=== PATIENT | female | born 1945 | race Caucasian/White ===

== ENCOUNTER → 2023-09-26 09:32 | Outpatient (REF) | payer OTHER, SELFPAY | LOC: HWWDC 09:32 | PROVIDERS: ATTENDING PHYSICIAN Obstetrics & Gynecology Gynecology; FAMILY PHYSICIAN Internal Medicine | DX: Z12.31 Encounter for screening mammogram for malignant neoplasm of breast (principal) | CPT/HCPCS: 77063; 77067 ==

== ENCOUNTER 2024-04-16 06:04 | Emergency (ER) | payer OTHER, SELFPAY ==
[2024-04-16] VITALS (8 sets, daily range): BP systolic 162–191; BP diastolic 72–108; BMI 16.8
--- NOTE | 2024-04-16 07:01 | ED.GENMED ---
History of Present Illness
General
Chief Complaint: Dizziness
Source: patient
Exam Limitations: none
Time Seen by Provider: 04/16/24 06:53
History of Present Illness
History of Present Illness:
See MDM
Past History
Past History
ED Past Medical History: HTN; Negative Asthma, Hypercholesterolemia or NIDDM
ED Past Surgical History: Appendectomy and Gynecological (right oophorectomy, Ovarian cyst)
Social History
Tobacco: Non-smoker
Alcohol: None
Drug: None
Personal:
Living: with family
Employment: Retired
Phy Exam
Physical Exam
Physical Exam:
See MDM
Course
Orders/Labs/Results
Orders:
Orders
04/16/24 07:00
Electrocardiogram (*1) Urgent
Reason for Study: Vertigo / Dizzy
CT Head W/o Iv Contrast Urgent
Comment:
Reason For Exam: Headache, dizziness
EKG- Treatment ONCE
0.9% Sodium Chloride 1000 ml [Nss] 1,000 ml IV BOLUS
04/16/24 07:42
Complete Blood Count/With Diff Urgent
Comprehensive Metabolic Panel Urgent
04/16/24 09:19
0.9% Sodium Chloride 1000 ml [Nss] 1,000 ml IV BOLUS
04/16/24 09:32
Acetaminophen [Tylenol] 650 mg PO NOW STA
Amlodipine [Norvasc] 2.5 mg PO ONCE ONE
Atenolol [Tenormin] 50 mg PO NOW STA
Abnormal Lab Results
04/16/24
07:42
Absolute Lymphs (auto) 1.0 L 10^3/uL
(1.2-3.4)
Neutrophils % 77.6 H %
(42.2-75.2)
Lymphocytes % 13.9 L %
(20.5-51.1)
BUN 27 H mg/dl
(7-17)
Glucose 109 H mg/dl
(70-99)
04/16/24 07:42
04/16/24 07:42
Vital Signs
Initial and Last Documented VS:
Initial Vital Signs
Pulse Resp BP
73 16 162/88
04/16/24 06:12 04/16/24 06:12 04/16/24 06:12
Last Documented Vital Signs
Pulse Resp BP Pulse Ox
69 16 184/72 96
04/16/24 11:30 04/16/24 11:30 04/16/24 11:00 04/16/24 11:30
MDM/Problems Addressed
Differential Diagnosis Includes:
HPI and MDM Narrative:
78-year-old female presenting for evaluation of dizziness and lightheadedness that appears to occur when she stands up quickly. On exam, patient appears hypovolemic. She does admit that her mouth feels dry. At rest, she has no dizziness. She
does have mild headache. Given her history, will give fluids. Patient states has a history of low sodium. Will obtain basic blood work. Prior records indicate that her hyponatremia appear to be related to hydrochlorothiazide. Given her headache
and dizziness, will obtain CT head. Will reassess after fluids
Physical exam
General: Well appearing and non-toxic
HEENT: protecting airway. Pupils are equal and reactive. EOMI. Dry mucous membranes
Neck: supple
CV: No evidence of cyanosis. Regular rate and rhythm
Resp: No accessory muscle use
Abd: Non-distended
Extremities: No deformities. No leg edema
Neuro: alert. Normal finger-nose bilateral
Psych: Normal affect
Skin: Intact
Problems Addressed including Acute and Chronic Conditions affecting care:
1. Dizziness
Acuity: acute
Prognosis: stable
Details: Likely in the setting of orthostasis and hypovolemia. Will give IV fluids.
Updates
After 2 L of fluid, patient feeling much better. Will ambulate prior to discharge
Differential Diagnosis (but not limited to): Orthostasis, hyponatremia, intracranial hemorrhage
Testing considered: Troponin but she denies chest pain or shortness
Drug therapy (if applicable): OTC meds, please see d/c instruction regarding Rx drugs
Amount and/or Complexity of Data Reviewed
Clinical info obtained from: Patient
External data reviewed: N/A
Labs I independently reviewed (but not limited to): White blood cell count normal
Radiology: The CT scan was personally and independently reviewed. In addition, official CT report reviewed.
Pulse Ox: not hypoxic
EKG independently reviewed: Sinus rhythm, normal axis, no STEMI
Barrel Stave Inspector: Sinus rhythm
Critical Care: N/A
Risk of Complication:
Social Determinants of health: Good social support
Discussed with other providers: N/A
Escalation of Care includes Admit/Obs: After being observed in the Emergency Department, pt stable for discharge.
Occasional wrong word or 'sound a like' substitutions may have occurred due to the inherent limitations of voice recognition software. Read the chart carefully and recognize, using context, where substitutions have occurred.
*Critical Care Note
Total Time (30-74mins, 75-104mins- exclusive of procedures): Not Applicable
ED Attending Note
-
Portions of this chart may have been created with voice recognition software.� Occasional wrong word or��sound alike� substitutions may have occurred due to the inherent limitations of voice recognition software.
Discharge Plan
Departure
Patient Disposition: Home (Routine Discharge)
Date of Disposition: 04/16/24
Time of Disposition: 12:07
Patient with high blood pressure during this ER visit?: Yes
Discharge Problem:
Orthostatic lightheadedness
Instructions: Dehydration, Adult ED, BLOOD PRESSURE
Prescriptions:
No Action
atenolol 50 mg tablet
50 mg PO DAILY
acetaminophen 325 mg Tablet
650 mg PO Q6H PRN (Reason: mild pain/temp>100)
amlodipine 2.5 mg Tablet
2.5 mg PO DAILY
Ocuvite Adult 50 Plus 250 mg (90 mg-160 mg) Capsule
1 cap PO DAILY
cetirizine [Zyrtec] 10 mg Tablet
10 mg PO HS
calcium carbonate-vitamin D3 [Calcium 600 + D(3)] 600 mg-5 mcg (200 unit) Tablet
1 tab PO BID
dicyclomine 10 mg Capsule
10 mg PO DAILY
dicyclomine 10 mg Capsule
10 mg PO TID PRN (Reason: diarrhea )
acetaminophen 325 mg tablet
650 mg PO BID
loperamide 2 mg Tablet
4 mg PO TIDPRN PRN (Reason: diarrhea )
sodium chloride 1,000 mg tablet,soluble
1,000 mg PO DAILY
Referrals:
ARABELLA CHIU MD [Family Provider] -
Activity Restrictions/Additional Instructions:
Please return for any worsening symptoms.
You may return at any time if you have further concerns.
Please follow up with your doctor at the first available appointment, preferably this week.
Thank you for choosing [facility].
Interventions
Interventions:
*Risk Screen - Suicide Last Done: 04/16/24 06:08
*General Assessment Last Done: 04/16/24 06:08
*Neglect/Abuse Screening Last Done: 04/16/24 06:08
ED- Fall Risk Assessment Last Done: 04/16/24 08:38
*ED COVID-19 Vaccine History Last Done: 04/16/24 06:08
ED- Neurological Assessment Last Done: 04/16/24 06:12
ED- Cardiac Assessment Last Done: 04/16/24 06:12
ED Swallowing Screen Last Done: 04/16/24 06:32
Discharge Date and Time
Print Language: SPANISH
[2024-04-16] MEDS: NSS 1000 IV ×2 (07:35→09:26)
[2024-04-16 08:06] LABS: % Basophils 0.3 % (0-2); % Eosinophils 0.8 % (0-6); % Immature Granulocytes 0.3 % (0-0.5); % Lymphocytes 13.9 % (20.5-51.1); % Monocytes 7.1 % (1.7-9.3); % Neutrophils 77.6 % (42.2-75.2); Absolute Eosinophils 0.1 10^3/uL (0-0.7); Absolute Monocytes 0.5 10^3/uL (0.1-0.6); Absolute Neutrophils 5.5 10^3/uL (1.4-6.5); Hematocrit 40.9 % (37.0-47.0); Mean Corp Hgb Conc. 34.2 g/dL (33.0-37.0); Mean Corpuscular Hgb 29.6 pg (27.0-31.0); Mean Corpuscular Volume 86.5 fL (81.0-99.0); Mean Platelet Volume 9.3 fL (7.4-10.4); Nucleated Red Blood Cells % 0 %; Platelet Count 259 10^3/uL (130-400); Red Blood Cell Count 4.73 10^6/uL (4.20-5.40); Red Cell Dist. Width 13.8 % (11.5-14.5); White Blood Cell Count 7.1 10^3/uL (4.8-10.8)
[2024-04-16 08:12] LABS: ALT (SGPT) 16 U/L (0-35); AST (SGOT) 27 U/L (14-36); Albumin 4.7 g/dl (3.5-5.0); Alkaline Phosphatase 69 U/L (38-126); Blood Urea Nitrogen 27 mg/dl (7-17); Calcium 9.7 mg/dl (8.4-10.2); Carbon Dioxide 26 mmol/L (22-30); Chloride 99 mmol/L (98-107); Estimated Creatinine Clearance 44 ml/min; Glucose 109 mg/dl (70-99); Potassium 4.6 mmol/L (3.5-5.1); Sodium 136 mmol/L (135-145); Total Bilirubin 0.5 mg/dl (0.2-1.3); eGFR > 60.00
[2024-04-16] MEDS: TYLENOL 650 MG PO (09:58)
[2024-04-16] MEDS: NORVASC 2.5 MG PO (09:58)
[2024-04-16] MEDS: TENORMIN 50 MG PO (09:58)
== END 2024-04-16 14:25 | disposition home or self-care (01) ==
LOC: EMR 06:04
PROVIDERS: EMERGENCY PHYSICIAN Student in an Organized Health Care Education/Training Program; FAMILY PHYSICIAN Internal Medicine
DX: R42 Dizziness and giddiness (principal); R51.9 Headache, unspecified; I10 Essential (primary) hypertension; Z88.1 Allergy status to other antibiotic agents; Z88.8 Allergy status to other drugs, medicaments and biological substances
CPT/HCPCS: 99285; 96360; 96361; 70450; 80053; 85025; 93005

== ENCOUNTER → 2024-09-30 10:02 | Outpatient (REF) | payer OTHER, SELFPAY | LOC: HWRAD 10:02 | PROVIDERS: ATTENDING PHYSICIAN Internal Medicine Rheumatology; FAMILY PHYSICIAN Internal Medicine; OTHER PHYSICIAN Physician Assistant; REFERRING PHYSICIAN Obstetrics & Gynecology Gynecology | DX: M81.0 Age-related osteoporosis without current pathological fracture (principal); Z12.31 Encounter for screening mammogram for malignant neoplasm of breast; R60.0 Localized edema; Z87.81 Personal history of (healed) traumatic fracture | CPT/HCPCS: 77063; 77067; 77080 ==

== ENCOUNTER → 2024-10-10 09:19 | Outpatient (REF) | payer OTHER, SELFPAY | LOC: WDC 09:19 | PROVIDERS: ATTENDING PHYSICIAN Obstetrics & Gynecology Gynecology; FAMILY PHYSICIAN Internal Medicine | DX: R92.8 Other abnormal and inconclusive findings on diagnostic imaging of breast (principal) | CPT/HCPCS: 76642 ==

== ENCOUNTER 2025-02-03 20:06 | Inpatient (IN) | payer OTHER, SELFPAY ==
[2025-02-03 17:35] VITALS: BP 142/79
[2025-02-03 17:56] LABS: Hematocrit 38.2 % (37.0-47.0); Hemoglobin 13.0 g/dL (12.0-16.0); Mean Corp Hgb Conc. 34.0 g/dL (33.0-37.0); Mean Corpuscular Volume 86.6 fL (81.0-99.0); Nucleated Red Blood Cells % 0 %; Platelet Count 212 10^3/uL (130-400); Red Cell Dist. Width 13.7 % (11.5-14.5)
[2025-02-03 18:08] LABS: ALT (SGPT) 21 U/L (0-35); AST (SGOT) 23 U/L (14-36); Albumin 4.1 g/dl (3.5-5.0); Alkaline Phosphatase 61 U/L (38-126); Blood Urea Nitrogen 27 mg/dl (7-17); Calcium 8.5 mg/dl (8.4-10.2); Carbon Dioxide 21 mmol/L (22-30); Chloride 105 mmol/L (98-107); Estimated Creatinine Clearance 53 ml/min; Glucose 139 mg/dl (70-99); Potassium 4.1 mmol/L (3.5-5.1); Sodium 134 mmol/L (135-145); Total Protein 6.6 g/dl (6.3-8.2); eGFR > 60.00
[2025-02-03 18:10] LABS: COVID-19 Antigen Negative (Negative)
[2025-02-03] MEDS: VIBRAMYCIN 100 MG PO (18:50)
[2025-02-03] MEDS: ROCEPHIN 1000 MG IV (18:50)
--- NOTE | 2025-02-03 19:15 | ED.GENMED ---
History of Present Illness
General
Chief Complaint: Fever
Time Seen by Provider: 02/03/25 18:14
History of Present Illness
History of Present Illness:
Patient is a 79-year-old woman presenting to the emergency department with a cough. Patient states that last week she developed a sinus infection. A few days ago went to urgent care was started on Augmentin. Her symptoms have worsened which
include generalized weakness body aches fever and worsening cough. She did have a temperature at home. No nausea vomiting. No abdominal pain. No diarrhea. She has only had 1 dose of her Augmentin.
Past History
Past History
ED Past Medical History: HTN; Negative Asthma, Hypercholesterolemia or NIDDM
ED Past Surgical History: Appendectomy and Gynecological (right oophorectomy, Ovarian cyst)
Social History
Tobacco: Non-smoker
Alcohol: None
Drug: None
Personal:
Living: with family
Employment: Retired
Phy Exam
Physical Exam
Physical Exam:
GENERAL: in no acute distress
HEENT: normocephalic, extraocular movements intact, moist oral mucosa
NECK: normal inspection
RESPIRATORY: no respiratory distress, coarse breath sounds at bilateral bases
CARDIOVASCULAR: regular rate and rhythm
ABDOMEN/: soft, non-distended, non-tender to palpation, no rebound or guarding
EXTREMITIES: non-tender, no edema/swelling
NEUROLOGIC: awake and alert, moves all extremities
SKIN: warm
Course
Orders/Labs/Results
Orders:
Orders
02/03/25 17:32
Electrocardiogram (*1) Urgent
Reason for Study: Other
Other Reason for Exam: Possible Sepsis
IV Insert/Care/Rem.- Treatment PRN
O2 Therapy [RESP] Urgent
Titrate/Wean O2 to maintain O2 sat greater than (%): 93
Special Instructions: TO MAINTAIN CONTINUOUS O2 SATS > OR = 93%
02/03/25 17:33
EKG- Treatment ONCE
CR Chest - 2 Views Urgent
Comment:
Reason For Exam: suspected infection
02/03/25 17:43
COVID-19 Antigen Urgent
Source: Nasal Swab
Complete Blood Count/With Diff Urgent
Comprehensive Metabolic Panel Urgent
Lactic Acid Q4H
Comment: ON ICE, CANCEL 2ND ORDER IF FIRST LACTIC ACID LEVEL <2
Influenza A+B Rapid Molecular Urgent
MICHELET Source: Nasal Swab
Specimen Description:
02/03/25 17:44
Blood Culture Urgent
MICHELET Source: Blood/Venous
Specimen Description:
02/03/25 18:43
CefTRIAXone [Rocephin] 1,000 mg IV NOW STA
Doxycycline [Vibramycin] 100 mg PO NOW STA
02/03/25 18:50
Sterile Water [Sterile Water For Injection] [facility]
02/03/25 21:45
Lactic Acid Q4H
Comment: ON ICE, CANCEL 2ND ORDER IF FIRST LACTIC ACID LEVEL <2
Abnormal Lab Results
02/03/25
17:43
Absolute Neuts (auto) 7.0 H 10^3/uL
(1.4-6.5)
Absolute Lymphs (auto) 0.7 L 10^3/uL
(1.2-3.4)
Neutrophils % 83.8 H %
(42.2-75.2)
Lymphocytes % 8.1 L %
(20.5-51.1)
Sodium 134 L mmol/L
(135-145)
Carbon Dioxide 21 L mmol/L
(22-30)
BUN 27 H mg/dl
(7-17)
Glucose 139 H mg/dl
(70-99)
02/03/25 17:43
02/03/25 17:43
Vital Signs
Initial and Last Documented VS:
Initial Vital Signs
Temp Pulse Resp BP Pulse Ox
100.1 F 87 26 142/79 85
02/03/25 17:35 02/03/25 17:35 02/03/25 17:35 02/03/25 17:35 02/03/25 17:35
Last Documented Vital Signs
Temp Pulse Resp BP Pulse Ox
100.1 F 87 26 142/79 85
02/03/25 17:35 02/03/25 17:35 02/03/25 17:35 02/03/25 17:35 02/03/25 17:35
MDM/Problems Addressed
Differential Diagnosis Includes:
Patient is a 79-year-old female presenting to the emergency department with fevers cough and bodyaches for the past few days. On arrival temperature is 100.1. Patient is hypoxic to 85% requiring nasal cannula.. Exam does show coarse breath sounds
at the bases. Concern for pneumonia versus viral infection. Blood work obtained prior to my evaluation is generally unremarkable. Lactic is normal chest x-ray per my interpretation consistent with pneumonia. Will start antibiotics. Discussed
with hospitalist who accepted patient to their service
*Pulse Oximetry
SaO2: 85
Oxygen Mode of Delivery: Room air
Patient hypoxic: yes (85)
*Critical Care Note
Total Time (30-74mins, 75-104mins- exclusive of procedures): Not Applicable
ED Attending Note
-
Portions of this chart may have been created with voice recognition software.� Occasional wrong word or��sound alike� substitutions may have occurred due to the inherent limitations of voice recognition software.
Discharge Plan
Departure
Patient Disposition: Admit
Date of Disposition: 02/03/25
Time of Disposition: 19:14
Presentation/result/management discussed w/ accepting MD/DO: Hospitalist
Discharge Problem:
Pneumonia
Prescriptions:
No Action
atenolol 50 mg tablet
50 mg PO DAILY
acetaminophen 325 mg Tablet
650 mg PO Q6H PRN (Reason: mild pain/temp>100)
amlodipine 2.5 mg Tablet
2.5 mg PO DAILY
Ocuvite Adult 50 Plus 250 mg (90 mg-160 mg) Capsule
1 cap PO DAILY
cetirizine [Zyrtec] 10 mg Tablet
10 mg PO HS
calcium carbonate-vitamin D3 [Calcium 600 + D(3)] 600 mg-5 mcg (200 unit) Tablet
1 tab PO BID
dicyclomine 10 mg Capsule
10 mg PO DAILY
dicyclomine 10 mg Capsule
10 mg PO TID PRN (Reason: diarrhea )
acetaminophen 325 mg tablet
650 mg PO BID
loperamide 2 mg Tablet
4 mg PO TIDPRN PRN (Reason: diarrhea )
sodium chloride 1,000 mg tablet,soluble
1,000 mg PO DAILY
Referrals:
ARABELLA CHIU MD [Family Provider, Internal Medicine]
Interventions
Interventions:
*Risk Screen - Suicide Last Done: 02/03/25 17:35
*General Assessment Last Done: 02/03/25 17:35
*Neglect/Abuse Screening Last Done: 02/03/25 17:35
*ED- Fall Risk Assessment Last Done: 02/03/25 17:35
*ED COVID-19 Vaccine History Last Done: 02/03/25 17:35
Discharge Date and Time
Print Language: GRENADIAN
--- NOTE | 2025-02-03 19:50 | HPS.HSE ---
Addendum entered and electronically signed by Jovanni Ornelas DO 02/03/25 20:05:
A/P:
Acute Hypoxemic Respiratory Failure secondary to pneumonia
- Supplemental O2 as needed for now.
- Treat pneumonia as noted.
Original Note:
Family Physician
-
Family Physician: ARABELLA CHIU MD
Chief Complaint
-
Cough, Fatigue
History of Present Illness
Patient is an 79y F with PMH significant for hypertension, depression and prior traumatic SDH who presents to ED complaining of cough and fatigue. Patient states that she has been having symptoms for about one week of cough, fatigue, headache
and myalgias. Patient was seen at urgent Care on Sunday and prescribed antibiotics. She states that she did not take her first dose of this until this morning (which is consistent with [place] OCT). Patient had continued cough, worsening fatigue /
malaise and nausea with occasional small amounts of emesis (which she attributes to swallowing mucus).
Patient states that her was recently will with similar symptoms.
Medical History
Past Medical History
Past Medical History: Reports Other
Additional Past Medical History:
Hypertension
ASCVD / PAD
Depression
Traumatic SDH
Past Surgical History: Reports Other
Additional Past Surgical History:
TMJ Surgery
D&E
Cataracts
Uvulectomy
T&A
Appendectomy
Right Oophorectomy
L Iliac Stent
Social History
Tobacco: Non-smoker
Alcohol: None
Drug: None
Family History
Family History: Not pertinent
Allergies / Home Medications
Allergies reflects when Allergies were last updated in [facility].
Home Medications with original date entered in [facility]
Allergy/Medication List:
Allergies
Allergy/AdvReac Type Severity Reaction Status Date / Time
ampicillin Allergy Mild Rash Verified 02/03/25 17:30
furosemide (From Lasix) Allergy Unknown Unknown Verified 02/03/25 17:30
hydrochlorothiazide (From Allergy decreased Verified 02/03/25 17:30
Dyazide) sodium
triamterene (From Dyazide) Allergy decreased Verified 02/03/25 17:30
sodium
Home Medications
atenolol 50 mg tablet 50 mg PO DAILY Blood Pressure 01/05/23
acetaminophen 325 mg tablet 325 mg PO Q4HPRN PRN mild pain 01/25/23
[id number] 250 mg-dha 90 mg-epa 160 [id number] capsule (Ocuvite Adult 50 Plus) 1 cap PO DAILY supplement 03/28/23
acetaminophen 325 mg tablet 650 mg PO BID pain 04/16/24
cetirizine 10 mg tablet (Zyrtec) 10 mg PO QPM allergies 04/16/24
dicyclomine 10 mg capsule 10 mg PO DAILY Gastrointestinal Issue 04/16/24
dicyclomine 10 mg capsule 10 mg PO Q8HPRN PRN diarrhea 04/16/24
sodium chloride 1,000 mg soluble tablet 1,000 mg PO DAILY Electrolyte Repletion 04/16/24
amlodipine 5 mg tablet 5 mg PO DAILY 02/03/25
amoxicillin 875 mg tablet 875 mg PO BID 02/03/25
atorvastatin 10 mg tablet 10 mg PO DAILY 02/03/25
benzonatate 100 mg capsule 100 mg PO Q8HPRN PRN cough 02/03/25
calcium carbonate (Calcium 600) 600 mg PO BID 02/03/25
loperamide 2 mg capsule (Imodium A-D) 4 mg PO Q8HPRN PRN diarrhea 02/03/25
Review of Systems
-
History Source: Patient
A 12 point ROS was completed and negative except as noted: Yes
Constitutional: Reports Fever, Fatigue and Chills
EENT: Denies Sore Throat
Respiratory: Reports Cough and Trouble Breathing
Cardiac: Denies Chest Pain or Palpitations
Abdomen/GI: Reports Nausea and Vomiting; Denies Abdominal Pain or Diarrhea
: Denies Dysuria or Frequency
Musculoskeletal: Reports Muscle Pain; Denies Joint Pain
Neurological: Reports Headache; Denies Dizzy
Psych: Denies Depression or Anxiety
Physical Exam
Vital Signs
Vital Signs
Temp Pulse Resp BP Pulse Ox
100.1 F 87 26 142/79 85
02/03/25 17:35 02/03/25 17:35 02/03/25 17:35 02/03/25 17:35 02/03/25 19:17
Physical Exam
General: Other (79y F in mild distress due to cough / nausea.)
HEENT: Moist mucous membranes, PERRLA and Other (Neck supple.)
Respiratory: Other (Decreased BS at bases - otherwise clear. Cough with deep inspiration.)
Cardiac: S1/S2 and Regular Rhythm; No Murmur
GI: Soft, Non Tender, Non Distended and Normal Bowel Sounds
Musculoskeletal: No Clubbing, No Cyanosis and No Edema
Neuro: AO x 3
Laboratory Results
-
02/03/25 17:43
02/03/25 17:43
Laboratory Results
Lactic Acid 1.0 mmol/L (0.7-2.0) 02/03/25 17:43
Total Bilirubin 0.7 mg/dl (0.2-1.3) 02/03/25 17:43
AST 23 U/L (14-36) 02/03/25 17:43
ALT 21 U/L (0-35) 02/03/25 17:43
Alkaline Phosphatase 61 U/L (38-126) 02/03/25 17:43
Impression/Plan
-
A/P: Patient is an 79y F with PMH significant for hypertension, depression and prior SDH who presents to ED complaining of cough, fatigue and myalgias x 1 week.
LLL Pneumonia
- Admit for further evaluation and treatment.
- Symptoms x 1 week. Rx abx at Urgent Care - but has only received one dose thus far (this AM).
- Continue abx for CAP.
- Supportive care including nebs, O2, antiemetics, etc.
- Follow for clinical improvement.
Benign Hypertension
- Stable. Continue usual home regimen with holding parameters.
ASCVD / PAD
- Stable. s/p prior L iliac stent.
Mild Chronic Hyponatremia
- Stable. Continue salt replacement.
DVT Prophylaxis: Subcut Heparin
Code Status: Full
[2025-02-03 20:31] VITALS: BP 133/68
[2025-02-03 21:00] VITALS: BP 125/67; BMI 17.2
[2025-02-03] MEDS: HEPARIN 5000 UNITS SC (21:28)
[2025-02-03] MEDS: TESSALON PERLES 100 MG PO (21:31)
[2025-02-03] MEDS: NSS 1000 IV (21:32)
[2025-02-03 23:00] VITALS: BP 114/58
[2025-02-04] MEDS: ROBITUSSIN 200 MG PO (02:14)
[2025-02-04 06:00] VITALS: BMI 17.4
[2025-02-04] MEDS: TESSALON PERLES 100 MG PO ×2 (06:31→14:27)
[2025-02-04 06:49] LABS: Hematocrit 37.1 % (37.0-47.0); Hemoglobin 12.3 g/dL (12.0-16.0); Mean Corp Hgb Conc. 33.2 g/dL (33.0-37.0); Mean Corpuscular Volume 88.3 fL (81.0-99.0); Platelet Count 227 10^3/uL (130-400); Red Cell Dist. Width 13.9 % (11.5-14.5)
[2025-02-04 07:18] VITALS: BP 128/64
[2025-02-04 07:19] LABS: Blood Urea Nitrogen 23 mg/dl (7-17); Calcium 8.3 mg/dl (8.4-10.2); Carbon Dioxide 22 mmol/L (22-30); Chloride 107 mmol/L (98-107); Estimated Creatinine Clearance 51 ml/min; Glucose 118 mg/dl (70-99); Potassium 3.9 mmol/L (3.5-5.1); Sodium 136 mmol/L (135-145); eGFR > 60.00
[2025-02-04] MEDS: NSS 1000 IV ×2 (07:19→18:32)
[2025-02-04] MEDS: PROTONIX 40 MG PO (07:52)
[2025-02-04] MEDS: VIBRAMYCIN 100 MG PO ×2 (07:52→20:35)
[2025-02-04] MEDS: MUCINEX 600 MG PO ×2 (07:52→20:35)
[2025-02-04] MEDS: TENORMIN 50 MG PO (07:52)
[2025-02-04] MEDS: HEPARIN 5000 UNITS SC ×2 (07:53→20:34)
[2025-02-04] MEDS: NORVASC 5 MG PO (07:53)
[2025-02-04] MEDS: TYLENOL 650 MG PO ×2 (07:58→17:31)
[2025-02-04] MEDS: SODIUM CHLORIDE 1 GRAM PO (08:41)
[2025-02-04 09:50] LABS: Procalcitonin 3.17 ng/ml (0.0-0.25)
[2025-02-04] MEDS: BENTYL 10 MG PO (14:27)
[2025-02-04 15:02] VITALS: BP 126/69
--- NOTE | 2025-02-04 16:03 | CM ---
Patient seen at bedside
IA completed
Dx: pnemonia
PMH significant for hypertension, depression and prior traumatic SDH
on oxygen
Patient resides at [facility] facility
PLOF: Independent
DME: [facility]
Denies VN/rehab
Denies insecurities
PCP: Puja Padilla
Pharmacy: [facility]
Plan: tbd, follow hospital progress, CM to follow for needs
--- NOTE | 2025-02-04 17:23 | W.PN.HOSP.TC ---
Addendum entered and electronically signed by Mart Levy MD 02/04/25 22:11:
Attending Addendum-
I saw and evaluated the patient. I reviewed the resident�s note and agree with findings and plan as documented in the resident�s note. Sub: States she feels weak and run down. Continues to have SOB and cough but mildly improved. afebrile ON. Full 12
point ROS reviewed and negative except as documented Exam: Vitals reviewed in chart GEN-lethargic Heart RRR lungs rhonchi LLL abd soft LE no edema Neuro AAO x 3
Plan:
#LLL Pneumonia
#Acute Hypoxemic Respiratory Failure
- Continue Rocephin and doxy x 5-7 days
- t/c steroids
- check sputum cx
- Supportive care including nebs, O2, antiemetics, etc.
- Follow for clinical improvement.
- wean o2 for sats > 92%
- repeat cbc in am
# Benign Hypertension
- Stable monitor cont atenolol and amlodipine
# ASCVD / PAD
- Stable. s/p prior L iliac stent.
# Mild Chronic Hyponatremia
- Stable. Continue salt tab
- check BMP in am
# HLD
- cont atorvastatin
DVT Prophylaxis: Subcut Heparin
Code Status: Full
Dispo-From [facility] [place]
ACP
Patient consented to discuss, was alone, time spent explanation of advance directives, changes in health status, patient�s health care wishes if the patient becomes unable to make health decisions, goals of care, code status, and prognosis, 'yes i
want it all' - 16 minutes
Time spent coordinating care, review of plan of care with resident, personally reviewed previous records in EMR, med rec, labs, radiology, d/w nursing, family total time documented is exclusive of any additional time listed that was spent in advance
care planning discussion -� 51 minutes
Original Note:
Today's Communication/Plan
-
Continue Ceftriaxone and Doxycycline for Sepsis and AHRF 2/2 pneumonia.
Monitor patient's clinical status.
Assessment / Plan
Assessment / Plan
#Sepsis 2/2 Pneumonia�
#AHRF 2/2 Pneumonia
-RR 26, T 96.5F, SpO2 85% on RA on presentation
-CXR: LLL consolidation, c/w PNA �
-Blood cx: PENDING �
-MRSA screen: PENDING
-Flu A/B: Negative
-Sputum Cx: PENDING
-WBC 7.5 - downtrending from 8.4 yesterday
-Procalcitonin 3.17
-Continue abx for CAP:�
��� -Ceftriaxone 1,000mg IV q24 �
��� -Doxycycline 100mg PO q12 �
-Supportive care including nebs (albuterol), O2, antiemetics (ondansetron), anti-tussive (Benzonatate) etc. �
-Wean oxygen for saturation >92%
-Follow for clinical improvement.
��
#Benign Hypertension �
-Stable. Continue usual home regimen with holding parameters.
��
#ASCVD / PAD �
-Stable. s/p prior L iliac stent.
-continue atorvastatin 10 mg PO qd
��
#Mild Chronic Hyponatremia �
-Stable. Continue salt replacement.
#Diarrhea
-Start Dicyclomine 10mg PO QID PRN
#Underweight
-BMI 17.4
-Suspected protein-calorie malnutrition
��
DVT ppx: Sc Heparin 5,000U q12 �
GI ppx: pantoprazole 40 mg qd�
Anticipated Discharge: 24 - 48 hours
Subjective/Interval History
-
Date of Service: February 04, 2025
Patient is seen at the bedside on hospital day #2. She is resting in bed on 2L of oxygen. Patient feels poorly, very tired. Headache resolved with Tylenol. No acute distress.
Objective Data
-
Labs:
Laboratory Results
02/04/25
06:21
WBC 7.5
Hgb 12.3
Hct 37.1
Plt Count 227
Sodium 136
Potassium 3.9
Chloride 107
Carbon Dioxide 22
BUN 23 H
Creatinine 0.6
Glucose 118 H
Calcium 8.3 L
Vital Signs:
Vital Signs
Temp Pulse Resp BP Pulse Ox
98.0 F 70 18 126/69 96
02/04/25 15:02 02/04/25 15:02 02/04/25 15:02 02/04/25 15:02 02/04/25 15:02
I&O
02/03/25 02/04/25 02/05/25
06:59 06:59 06:59
Intake Total 240 / 240 540 / 540
Balance 240 / 240 540 / 540
Review of Systems
-
History Source: Patient
Constitutional: Reports Fatigue and Chills; Denies Fever
Respiratory: Reports Cough (Dry); Denies Trouble Breathing
Cardiac: Denies Chest Pain
Abdomen/GI: Denies Abdominal Pain
Neuro: Denies Headache
Physical Exam
-
General: No Apparent Distress
HEENT: Normocephalic and Atraumatic
Respiratory: Non Labored Respirations and Other (Coughs repeatedly with deep inspiration)
Cardiac: Regular Rhythm and Other (UE pulses strong); Negative Murmur, Rub or Gallop
GI: Soft and Nontender
Musculoskeletal: No Edema
Neuro: Awake and AO x 3
Data Reviewed
-
Diagnostic Radiology: Report Reviewed by me
Labs: Labs Reviewed by me
[2025-02-04] MEDS: LIPITOR 10 MG PO (17:29)
[2025-02-04] MEDS: ROCEPHIN 1000 MG IV (20:34)
[2025-02-04] MEDS: STERILE WATER FOR INJECTION 10 ML IV (20:34)
[2025-02-04 23:02] VITALS: BP 123/62
[2025-02-05 06:00] VITALS: BMI 18.0
[2025-02-05] MEDS: NSS 1000 IV (06:11)
[2025-02-05] MEDS: ROBITUSSIN 200 MG PO ×2 (06:11→19:57)
[2025-02-05 07:10] VITALS: BP 117/61
[2025-02-05 07:24] LABS: Hematocrit 33.3 % (37.0-47.0); Hemoglobin 11.5 g/dL (12.0-16.0); Mean Corp Hgb Conc. 34.5 g/dL (33.0-37.0); Mean Corpuscular Volume 87.2 fL (81.0-99.0); Nucleated Red Blood Cells % 0 %; Platelet Count 225 10^3/uL (130-400); Red Cell Dist. Width 13.9 % (11.5-14.5)
[2025-02-05] MEDS: MUCINEX 600 MG PO ×2 (07:41→19:49)
[2025-02-05] MEDS: PROTONIX 40 MG PO (07:41)
[2025-02-05] MEDS: SODIUM CHLORIDE 1 GRAM PO (07:41)
[2025-02-05] MEDS: TENORMIN 50 MG PO (07:41)
[2025-02-05] MEDS: NORVASC 5 MG PO (07:41)
[2025-02-05] MEDS: HEPARIN 5000 UNITS SC ×2 (07:42→19:49)
[2025-02-05] MEDS: VIBRAMYCIN 100 MG PO ×2 (07:42→19:49)
[2025-02-05 07:48] LABS: Blood Urea Nitrogen 17 mg/dl (7-17); Calcium 7.5 mg/dl (8.4-10.2); Carbon Dioxide 22 mmol/L (22-30); Chloride 105 mmol/L (98-107); Estimated Creatinine Clearance 53 ml/min; Glucose 114 mg/dl (70-99); Potassium 3.6 mmol/L (3.5-5.1); Sodium 135 mmol/L (135-145); eGFR > 60.00
[2025-02-05] MEDS: ZOFRAN 4 MG IV ×2 (08:43→22:37)
[2025-02-05] MEDS: TYLENOL 650 MG PO ×2 (11:13→16:40)
--- NOTE | 2025-02-05 13:36 | CM ---
Patient seen at bedside
from [facility] [place]
spoke with Omid at & updated
stated they do not accept over the weekend
patient on room air today
PLAN: [facility]UAN when stable
Report #: [phone] ask for nursing
Fax #: [phone]
[2025-02-05 14:30] VITALS: PULSE 77; O2SAT 89
[2025-02-05 14:59] VITALS: BP 114/63
[2025-02-05] MEDS: BENTYL 10 MG PO (16:39)
[2025-02-05] MEDS: TESSALON PERLES 100 MG PO (16:40)
[2025-02-05] MEDS: LIPITOR 10 MG PO (17:13)
--- NOTE | 2025-02-05 17:45 | W.PN.HOSP.TC ---
Addendum entered and electronically signed by Mart Levy MD 02/05/25 20:21:
Attending Addendum-
I saw and evaluated the patient. I reviewed the resident�s note and agree with findings and plan as documented in the resident�s note. Sub: States she continues to feel fatigued. off o2 when seen. SOB and cough improved. had episode of CP this am
with cough now resolved. afebrile ON. Full 12 point ROS reviewed and negative except as documented Exam: Vitals reviewed in chart GEN-fatigued Heart RRR lungs rhonchi LLL abd soft LE no edema Neuro AAO x 3
Plan:
#LLL Pneumonia
#Acute Hypoxemic Respiratory Failure
- Continue Rocephin and doxy x 5-7 days
- start steroid burst
- check sputum cx-contaminated
- Supportive care including nebs, O2, antiemetics, etc.
- Follow for clinical improvement.
- wean o2 for sats > 92%
- repeat cbc in am
# Atypical CP
- secondary to cough
- EKG personally reviewed- q waves in v1-v3 no ST changes NSR
- CTM supportive care
# Benign Hypertension
- Stable monitor cont atenolol and amlodipine
# ASCVD / PAD
- Stable. s/p prior L iliac stent.
# Chronic Hyponatremia
- Stable
- Continue salt tab
- check BMP in am
# HLD
- cont atorvastatin
DVT Prophylaxis: Subcut Heparin
Code Status: Full
Dispo-From [facility]- DC in am
Time spent coordinating care, review of plan of care with resident, personally reviewed records in EMR, med rec, consults, notes, labs, radiology, d/w nursing � 52 mins
Original Note:
Today's Communication/Plan
-
Continue antibiotics, wean supplemental oxygen >92% saturation.
Monitor patient's clinical status.
Assessment / Plan
Assessment / Plan
#Sepsis 2/2 Pneumonia�
#AHRF 2/2 Pneumonia
-RR 26, T 96.5F, SpO2 85% on RA on presentation to ED
-CXR: LLL consolidation, c/w PNA �
-Blood cx (02/03): NGTD
-MRSA screen (02/04): Negative
-Flu A/B: Negative
-Sputum Cx (02/05): Contaminated, will repeat
-Repeat sputum (02/05): PENDING
-WBC 7.2, stable
-Procalcitonin: 3.17
-Continue abx for CAP:�
��� -Ceftriaxone 1,000mg IV q24
��� -Doxycycline 100mg PO q12 �
-Supportive care: nebs (albuterol), O2, antiemetics (ondansetron), anti-tussive (Benzonatate), mucolytic (Guaifenesin), etc.
-Wean oxygen for saturation >92%
-Follow for clinical improvement
��
#Acute anemia
-Hgb 11.5 (12.3 yesterday)
-Monitor H&H, clinical status
#Hypocalcemia
-Ca 7.5 (8.3 yesterday)
-Monitor CBC, clinical status
#Benign Hypertension �
-Stable. Continue home regimen with holding parameters.
��
#ASCVD / PAD �
-Stable. s/p prior L iliac stent.
-continue atorvastatin 10 mg PO qd
��
#Mild Chronic Hyponatremia �
-Stable, Na 135. Continue salt replacement.
#Diarrhea
-Continue Dicyclomine 10mg PO QID PRN
#Underweight
-BMI 17.4
-Suspected protein-calorie malnutrition
��
DVT ppx: Sc Heparin 5,000U q12 �
GI ppx: pantoprazole 40 mg qd�
Anticipated Discharge: 24 - 48 hours
Subjective/Interval History
-
Date of Service: February 05, 2025
Hospital day #3. Nursing reports NAEO. Patient was weaned to room air this morning. Patient states she is 'very tired.' Cough is worse than yesterday, though it is still dry. Patient complains of pressure-like, non-radiating chest pain while laying
in bed for the past hour. She thinks it is related to her cough. EKG ordered. NSR. No significant change when compared with EKG from 02/03.
Objective Data
-
Labs:
Laboratory Results
02/05/25
06:55
WBC 7.2
Hgb 11.5 L
Hct 33.3 L
Plt Count 225
Sodium 135
Potassium 3.6
Chloride 105
Carbon Dioxide 22
BUN 17
Creatinine 0.5 L
Glucose 114 H
Calcium 7.5 L
Vital Signs:
Vital Signs
Temp Pulse Resp BP Pulse Ox
97.7 F 76 18 114/63 92
02/05/25 14:59 02/05/25 14:59 02/05/25 14:59 02/05/25 14:59 02/05/25 14:59
I&O
02/04/25 02/05/25 02/06/25
06:59 06:59 06:59
Intake Total 240 / 240 3420 / 3420
Balance 240 / 240 3420 / 3420
Review of Systems
-
History Source: Patient
Constitutional: Reports Fatigue and Chills
Respiratory: Reports Cough (Dry); Denies Trouble Breathing
Cardiac: Reports Chest Pain
Abdomen/GI: Reports Nausea; Denies Abdominal Pain
Musculoskeletal: Denies Other (Denies muscle spasms)
Neuro: Denies Headache
Physical Exam
-
General: Other (Patient appears tired)
HEENT: Normocephalic and Atraumatic
Respiratory: Non Labored Respirations and Other (Coughs with deep inspiration)
Cardiac: Regular Rhythm and Other (UE pulses 2+); Negative Murmur, Rub or Gallop
GI: Soft, Nontender and Normal Bowel Sounds
Musculoskeletal: No Edema
Skin: Warm and Dry
Neuro: AO x 3
Data Reviewed
-
Medical Tests (Nuc Med, Echo etc): Report Reviewed by me
Labs: Labs Reviewed by me
[2025-02-05] MEDS: STERILE WATER FOR INJECTION 10 ML IV (19:50)
[2025-02-05] MEDS: ROCEPHIN 1000 MG IV (19:54)
[2025-02-05] MEDS: DELTASONE 40 MG PO (20:30)
[2025-02-05 23:10] VITALS: BP 139/77
[2025-02-06 06:00] VITALS: BMI 17.8
[2025-02-06 07:15] VITALS: BP 134/72
[2025-02-06] MEDS: MUCINEX 600 MG PO (07:37)
[2025-02-06] MEDS: VIBRAMYCIN 100 MG PO (07:38)
[2025-02-06] MEDS: DELTASONE 40 MG PO (07:38)
[2025-02-06] MEDS: SODIUM CHLORIDE 1 GRAM PO (07:39)
[2025-02-06] MEDS: NORVASC 5 MG PO (07:39)
[2025-02-06] MEDS: TENORMIN 50 MG PO (07:39)
[2025-02-06] MEDS: PROTONIX 40 MG PO (07:40)
[2025-02-06] MEDS: TYLENOL 650 MG PO (07:40)
[2025-02-06] MEDS: HEPARIN 5000 UNITS SC (07:40)
[2025-02-06] MEDS: BENTYL 10 MG PO (07:45)
[2025-02-06 08:14] LABS: Hematocrit 36.8 % (37.0-47.0); Hemoglobin 12.7 g/dL (12.0-16.0); Mean Corp Hgb Conc. 34.5 g/dL (33.0-37.0); Mean Corpuscular Volume 84.4 fL (81.0-99.0); Nucleated Red Blood Cells % 0 %; Platelet Count 301 10^3/uL (130-400); Red Cell Dist. Width 13.7 % (11.5-14.5)
[2025-02-06 08:20] LABS: Blood Urea Nitrogen 16 mg/dl (7-17); Calcium 8.1 mg/dl (8.4-10.2); Carbon Dioxide 23 mmol/L (22-30); Chloride 101 mmol/L (98-107); Estimated Creatinine Clearance 52 ml/min; Glucose 155 mg/dl (70-99); Potassium 4.0 mmol/L (3.5-5.1); Sodium 134 mmol/L (135-145); eGFR > 60.00
[2025-02-06] MEDS: TESSALON PERLES 100 MG PO (09:04)
--- NOTE | 2025-02-06 09:07 | W.PN.HOSP.TC ---
Addendum entered and electronically signed by Mart Levy MD 02/06/25 22:38:
Attending Addendum-
I saw and evaluated the patient. I reviewed the resident�s note and agree with findings and plan as documented in the resident�s note. Sub: States she grety improved but still fatigued. SOB and cough improved. afebrile ON. Full 12 point ROS reviewed
and negative except as documented Exam: Vitals reviewed in chart GEN-fatigued Heart RRR lungs rhonchi LLL abd soft LE no edema Neuro AAO x 3
Plan:
#LLL Pneumonia
#Acute Hypoxemic Respiratory Failure - resolved
- Continue cefdinir and doxy x7 days
- cont steroid burst
- check sputum cx-contaminated
- weaned off o2 for sats > 92%
# Atypical CP
- secondary to cough
- resolved
- EKG personally reviewed- q waves in v1-v3 no ST changes NSR
- CTM supportive care
# Benign Hypertension
- Stable monitor cont atenolol and amlodipine
# ASCVD / PAD
- Stable. s/p prior L iliac stent.
# Chronic Hyponatremia
- Stable
- Continue salt tab
# HLD
- cont atorvastatin
DVT Prophylaxis: Subcut Heparin
Code Status: Full
Dispo-From [facility]- DC
Time spent coordinating care, DC planning, review of DC plan of care with resident, transition of care, review of records, med rec/scripts sent electronically, consults, notes, d/w consultants, nursing, family, and CM� 32mins >50% of this time was
devoted to counseling and coordination of care
Original Note:
Today's Communication/Plan
-
Continue ceftriaxone and doxycycline for treatment of pneumonia. Monitor clinical status.
Plan for discharge later today.
Assessment / Plan
Assessment / Plan
#Sepsis 2/2 Pneumonia�
#AHRF 2/2 Pneumonia
-RR 26, T 96.5F, SpO2 85% on RA on presentation to ED
-CXR: LLL consolidation, c/w PNA �
-Blood cx (02/03): NGTD
-MRSA screen (02/04): Negative
-Flu A/B: Negative
-Sputum Cx (02/05): Contaminated, will repeat
-Repeat sputum (02/06): PENDING
-WBC 6.5, stable
-Procalcitonin: 3.17
-Continue abx for CAP:�
��� -Ceftriaxone 1,000mg IV q24; transition to Cefdinir PO upon discharge
��� -Doxycycline 100mg PO q12 �
-Supportive care: nebs (albuterol), O2, antiemetics (ondansetron), anti-tussive (Benzonatate), mucolytic (Guaifenesin), etc.
-Patient currently comfortable on RA
-Follow for clinical improvement
��
#Acute anemia
-Hgb 12.7 (11.5 yesterday), stable
-Monitor H&H, clinical status
#Hypocalcemia
-Ca 8.1 (7.5 yesterday), stable
-Monitor CBC, clinical status
#Benign Hypertension �
-Stable. Continue home regimen.
��
#ASCVD / PAD �
-Stable. s/p prior L iliac stent.
-continue atorvastatin 10 mg PO qd
��
#Mild Chronic Hyponatremia �
-Na 134, stable. Continue salt replacement.
#Diarrhea
-Continue Dicyclomine 10mg PO QID PRN
#Allergies
-Cetirizine 5 mg PO qd PRN
#Underweight
-BMI 17.4
-Suspected protein-calorie malnutrition
��
DVT ppx: Sc Heparin 5,000U q12 �
GI ppx: pantoprazole 40 mg qd�
Anticipated Discharge: 24 - 48 hours
Subjective/Interval History
-
Date of Service: February 06, 2025
Patient seen at bedside on hospital day #4. Patient states she is 'feeling a little better. Stronger than yesterday.' Patient reports she has been comfortable since being weaned off of supplemental oxygen this morning. Patient amenable to
discharge later today.
Objective Data
-
Labs:
Laboratory Results
02/06/25
07:28
WBC 6.5
Hgb 12.7
Hct 36.8 L
Plt Count 301 D
Sodium 134 L
Potassium 4.0
Chloride 101
Carbon Dioxide 23
BUN 16
Creatinine 0.5 L
Glucose 155 H
Calcium 8.1 L
Vital Signs:
Vital Signs
Temp Pulse Resp BP Pulse Ox
97.6 F 82 18 134/72 96
02/06/25 07:15 02/06/25 07:15 02/06/25 07:15 02/06/25 07:15 02/06/25 07:15
I&O
02/05/25 02/06/25 02/07/25
06:59 06:59 06:59
Intake Total 3420 / 3420
Balance 3420 / 3420
Review of Systems
-
History Source: Patient
Constitutional: Reports Weakness; Denies Fever, Fatigue or Chills
Respiratory: Reports Cough (Dry); Denies Trouble Breathing
Cardiac: Denies Chest Pain
Abdomen/GI: Reports Diarrhea; Denies Abdominal Pain
Musculoskeletal: Denies Edema
Physical Exam
-
General: No Apparent Distress and Comfortable
HEENT: Normocephalic and Atraumatic
Respiratory: Crackles (Fine crackles left lung base), Non Labored Respirations and Other (Cough on deep inspiration)
Cardiac: Regular Rhythm; Negative Murmur, Rub or Gallop
GI: Soft, Nontender and Normal Bowel Sounds
Neuro: AO x 3
Psych: Calm
Data Reviewed
-
Labs: Labs Reviewed by me
--- NOTE | 2025-02-06 11:40 | CM ---
Addendum entered by Rabia Dumont 02/06/25 14:05:
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
Original Note:
CM following re: d/c planning.
Per med team, pt medically stable for d/c today.
D/c plan to return to [facility]
Call placed, spoke with Ashlyn. She states pt must arrive between 430 - 5 PM today.
Will work with regarding transport.
Report #: [phone] ask for Ashlyn
Fax #: [phone] and also [phone] (send to both please).
Goal: return to [facility].
[2025-02-06 12:49] VITALS: BP 122/68; O2SAT 97
[2025-02-06] MEDS: ZYRTEC 5 MG PO (13:46)
[2025-02-06 15:35] VITALS: BP 114/64
--- NOTE | 2025-02-06 19:45 | W.DCSUMMARY ---
Documented by User: Eb Gomez MD, Resident 02/06/25 20:38
Discharge Summary
Discharge Data
Date of Admission: 02/03/25
Date of Discharge: 02/06/25
-
Pending Results: No
Hospital Course
Discharging Physician : Eb Gomez MD; Mart Levy MD
Disposition : [facility] assisted living
Primary care physician : � � �Arabella Chiu
Principal Discharge diagnosis : Acute hypoxemic respiratory failure secondary to left lower lobe pneumonia; atypical chest pain
Chronic Discharge diagnosis : Benign hypertension; hyperlipidemia; chronic hyponatremia
Hospital Course : Patient presented to the [facility] emergency department with complaint of cough, fatigue, headache, and myalgias for 1 week. Based on clinical and radiographic findings, the patient was diagnosed and treated for acute hypoxic
respiratory failure secondary to a left lower lobe pneumonia. The patient was treated with ceftriaxone and doxycycline for 4 days in the hospital. Patient was also started on a short course of prednisone. She intermittently required supplemental
oxygen, but she ultimately showed clinical improvement and was weaned off of said supplemental oxygen. During her hospital stay, the patient had an episode of atypical chest pain, which prompted evaluation with an EKG. EKG showed NSR and Q waves
in V1�V3, with no ST changes. The chest pain was deemed to be secondary to the patient's cough. The patient will continue the antibiotic course with cefdinir 300 mg p.o. every 12 hours and doxycycline 100 mg p.o. every 12 hours until 02/10.
Additionally, the patient will continue the steroid course with prednisone 40 mg p.o. daily until 02/11.
In addition, the patient's chronic medical conditions were managed as follows:
1. Benign hypertension: Managed with patient's home medications of atenolol and amlodipine. Patient remained clinically stable.
2. Hyperlipidemia: Managed with patient's home medication of atorvastatin. Patient remained clinically stable.
3. Chronic hyponatremia: Managed with patient's home medication of salt tablets and serial BMPs. Patient remained clinically stable.
Important imaging findings : �Chest X-Ray - 02/03/25: Consolidation in the posterior basilar left lower lobe, most compatible with pneumonia.
Procedure findings :�N/A
Discharge Plan
-
Patient Disposition: Shelter/SNF
Discharge Diagnosis/Procedures: CAP
Condition: Good
Diet: No restrictions
Activity: No restrictions
Driving Restrictions: As prior to admission
Bathing Restrictions: None
Referrals:
ARABELLA CHIU MD [Family Provider, Internal Medicine]
Additional Discharge Medication Instructions: FOR YOUR PNEUMONIA:
Take Cefdinir 300mg capsule every 12 hours until 02/10/2025
Take Doxycycline 100mg every 12 hours until 02/10/2025
Take Prednisone 40mg every day until 02/11/2025
Take Benzonatate 100mg Capsules every 8 hours as needed for cough
Take an OTC Probiotic for the duration of your antibiotic course and for 2 weeks thereafter
Prescriptions:
New
doxycycline hyclate 100 mg Capsule
100 mg PO Q12 5 Days Qty: 10 0RF
prednisone 20 mg Tablet
40 mg PO DAILY 5 Days Qty: 10 0RF
cefdinir 300 mg capsule
300 mg PO Q12H 4 Days Qty: 8 0RF
Continued
atenolol 50 mg tablet
50 mg PO DAILY
acetaminophen 325 mg Tablet
325 mg PO Q4HPRN PRN (Reason: mild pain)
Ocuvite Adult 50 Plus 250 mg (90 mg-160 mg) Capsule
1 cap PO DAILY
cetirizine [Zyrtec] 10 mg Tablet
10 mg PO QPM
dicyclomine 10 mg Capsule
10 mg PO DAILY
dicyclomine 10 mg Capsule
10 mg PO Q8HPRN PRN (Reason: diarrhea )
acetaminophen 325 mg tablet
650 mg PO BID
sodium chloride 1,000 mg tablet,soluble
1,000 mg PO DAILY
loperamide [Imodium A-D] 2 mg Capsule
4 mg PO Q8HPRN PRN (Reason: diarrhea)
atorvastatin 10 mg Tablet
10 mg PO DAILY
amlodipine 5 mg Tablet
5 mg PO DAILY
calcium carbonate [Calcium 600] 600 mg calcium (1,500 mg) Tablet
600 mg PO BID
benzonatate 100 mg Capsule
100 mg PO Q8HPRN PRN (Reason: cough) 4 Days Qty: 12 0RF
Discontinued
amoxicillin 875 mg Tablet
875 mg PO BID
Patient Comments:
02/03/2025, start date: 02/03/2025 for 7-day course.
Discharge Orders:
Discharge Patient (As Directed); Ordered 02/06/25
Ordered By: Jose Carlos Lemos
Discharge Date and Time
Discharge Date/Time: 02/06/25 17:55
Print Language: SLOVENIAN

Documented by User: Mart Levy MD 02/06/25 22:36
Discharge Summary
Discharge Data
Date of Admission: 02/03/25
Date of Discharge: 02/06/25
Discharge Plan
-
Patient Disposition: Shelter/SNF
Discharge Diagnosis/Procedures: CAP
Condition: Good
Diet: No restrictions
Activity: No restrictions
Driving Restrictions: As prior to admission
Bathing Restrictions: None
Referrals:
ARABELLA CHIU MD [Family Provider, Internal Medicine]
Additional Discharge Medication Instructions: FOR YOUR PNEUMONIA:
Take Cefdinir 300mg capsule every 12 hours until 02/10/2025
Take Doxycycline 100mg every 12 hours until 02/10/2025
Take Prednisone 40mg every day until 02/11/2025
Take Benzonatate 100mg Capsules every 8 hours as needed for cough
Take an OTC Probiotic for the duration of your antibiotic course and for 2 weeks thereafter
Prescriptions:
New
doxycycline hyclate 100 mg Capsule
100 mg PO Q12 5 Days Qty: 10 0RF
prednisone 20 mg Tablet
40 mg PO DAILY 5 Days Qty: 10 0RF
cefdinir 300 mg capsule
300 mg PO Q12H 4 Days Qty: 8 0RF
Continued
atenolol 50 mg tablet
50 mg PO DAILY
acetaminophen 325 mg Tablet
325 mg PO Q4HPRN PRN (Reason: mild pain)
Ocuvite Adult 50 Plus 250 mg (90 mg-160 mg) Capsule
1 cap PO DAILY
cetirizine [Zyrtec] 10 mg Tablet
10 mg PO QPM
dicyclomine 10 mg Capsule
10 mg PO DAILY
dicyclomine 10 mg Capsule
10 mg PO Q8HPRN PRN (Reason: diarrhea )
acetaminophen 325 mg tablet
650 mg PO BID
sodium chloride 1,000 mg tablet,soluble
1,000 mg PO DAILY
loperamide [Imodium A-D] 2 mg Capsule
4 mg PO Q8HPRN PRN (Reason: diarrhea)
atorvastatin 10 mg Tablet
10 mg PO DAILY
amlodipine 5 mg Tablet
5 mg PO DAILY
calcium carbonate [Calcium 600] 600 mg calcium (1,500 mg) Tablet
600 mg PO BID
benzonatate 100 mg Capsule
100 mg PO Q8HPRN PRN (Reason: cough) 4 Days Qty: 12 0RF
Discontinued
amoxicillin 875 mg Tablet
875 mg PO BID
Patient Comments:
02/03/2025, start date: 02/03/2025 for 7-day course.
Discharge Orders:
Discharge Patient (As Directed); Ordered 02/06/25
Ordered By: Jose Carlos Lemos
Discharge Date and Time
Discharge Date/Time: 02/06/25 17:55
Print Language: SLOVENIAN
== END 2025-02-06 17:55 | disposition home or self-care (01) | DRG 193 ==
LOC: 3 WEST ACU 20:06
PROVIDERS: Emergency Medicine; ADMITTING PHYSICIAN Hospitalist; ATTENDING PHYSICIAN Family Medicine; EMERGENCY PHYSICIAN Student in an Organized Health Care Education/Training Program; FAMILY PHYSICIAN Internal Medicine
DX: J18.9 Pneumonia, unspecified organism (principal); J96.01 Acute respiratory failure with hypoxia; E87.1 Hypo-osmolality and hyponatremia; E46 Unspecified protein-calorie malnutrition; Z68.1 Body mass index [BMI] 19.9 or less, adult; I10 Essential (primary) hypertension; E78.00 Pure hypercholesterolemia, unspecified; F32.A Depression, unspecified; I25.10 Atherosclerotic heart disease of native coronary artery without angina pectoris; Z88.0 Allergy status to penicillin; Z90.721 Acquired absence of ovaries, unilateral; Z95.820 Peripheral vascular angioplasty status with implants and grafts; E83.51 Hypocalcemia; Z11.52 Encounter for screening for COVID-19
CPT/HCPCS: 71046; 80048; 80053; 83605; 84145; 85025; 85027; 87040; 87070; 87205; 87502; 87811; 93005; 96374; 97162; 97166; 99285

== ENCOUNTER → 2025-04-07 09:58 | Outpatient (REF) | payer OTHER, SELFPAY | LOC: HWWDC 09:58 | PROVIDERS: ATTENDING PHYSICIAN Obstetrics & Gynecology Gynecology | DX: R92.8 Other abnormal and inconclusive findings on diagnostic imaging of breast (principal) | CPT/HCPCS: 77061; 77065 ==